=== PATIENT | female | born 1945 | race Caucasian/White ===

== ENCOUNTER 2017-11-02 13:23 | Observation (INO) ==
[2017-11-02] MEDS ORDERED: 0.9 % Sodium Chloride 1,000 ML IVC ONE (13:34)
[2017-11-02] MEDS ORDERED: Isovue-370 500 ML INFUS..BTL IV ONE ×3 (13:35→14:33)
[2017-11-02] MEDS ORDERED: Piperacillin/Tazobactam 3.375 GM in 0.9 % Sodium Chloride Mini Bag 100 ML IVPB ONE (13:37)
[2017-11-02 14:08] LABS: Basophils % 0.2 %; Eosinophils % 0.1 %; Hematocrit 28.8 % (35.3-44.9); Hemoglobin 8.8 g/dL (11.5-15.4); Immature Granulocytes % 0.9 % (0-4); Lymphocytes # 0.7 K/mcL (0.6-4.6); Lymphocytes % 6.1 %; Mean Corpuscular HGB Conc 30.6 g/dL (31.6-35.5); Mean Corpuscular Hemoglobin 28.3 pg (28.0-33.3); Mean Corpuscular Volume 92.6 fL (83.0-100.0); Mean Platelet Volume 9.1 fL (9.4-12.4); Monocytes # 0.9 K/mcL (0.0-1.3); Monocytes % 7.9 %; Neutrophils # 9.2 K/mcL (1.6-8.9); Platelet Count 309 K/mcL (140-400); Red Blood Count 3.11 M/mcL (3.82-4.97); Red Cell Distribution Width 19.2 % (11.5-14.5); Segmented Neutrophils % 84.8 %
[2017-11-02 14:11] LABS: VBG HCO3 25 mEq/L (21-27); VBG PCO2 39 mmHg (41-51); VBG PH 7.42 pH Units (7.32-7.42); VBG PO2 87 mmHg (25-50)
[2017-11-02 14:15] LABS: INR 1.2; Prothrombin Time 13.3 Seconds (9.4-12.1)
[2017-11-02 14:17] LABS: Activated Partial Thrombo Time 22.6 Seconds (26.0-36.0)
--- NOTE | 2017-11-02 14:18 | Emergency Department Note ---
Disposition Clinical Impression: Metastatic disease, Elevated troponin DVT (deep venous thrombosis) Qualifiers: DVT location: lower extremity Affected thrombotic vein of extremity: femoral Chronicity: unspecified Laterality: left Qualified Code(s): I82.412 - Acute embolism and thrombosis of left femoral vein Pulmonary embolism Qualifiers: Pulmonary embolism type: other Chronicity: acute Acute cor pulmonale presence: without acute cor pulmonale Qualified Code(s): I26.99 - Other pulmonary embolism without acute cor pulmonale Altered mental status Qualifiers: Altered mental status type: unspecified Qualified Code(s): R41.82 - Altered mental status, unspecified Disposition: Admitted As Inpatient Condition: Critical Referrals: Andrew Delarosa MD [Primary Care Provider] - Forms: ED Satisfaction Letter Altered Mental Status HPI - General Chief Complaint: ED Altered Mental Status Stated Complaint: Altered Mental Status Time Seen by Provider: 11/02/17 13:27 Source: EMS Limitations: no limitations Nursing Notes Reviewed: Yes Vital Signs Reviewed: Yes - History of Present Illness HPI Narrative: Patient presents to the emergency department from care home for evaluation of altered mental status. Symptoms started on Friday per nursing report have continued to worsen over the weekend. Patient has a history of left-sided DVT with +1 pitting edema that is now 4+ pitting edema. She has a history of lung cancer with pelvic mass. The patient has on exam a sacral decubitus ulcer that extends into the sacrum and does have some mild purulent material. The patient also has bruising to the abdomen and chest. She was noted to have some mild bruising earlier in the week per care home from Lovenox injections. His bruising is now symmetrical involves the abdomen and a square-like pattern does not go to the back and also has involvement of both bilateral breasts. Patient is unable to tell me any information as her speech is garbled. She is normally awake alert and oriented and able to speak in feed herself. Does not usually require oxygen. - Related Data Home Medications Medication Instructions Recorded Confirmed Acetaminophen [Non-Aspirin] 2 tab PO Q4H PRN 09/23/17 11/02/17 Atorvastatin [Lipitor] 40 mg PO HS 09/23/17 11/02/17 Buspirone HCl [Buspar] 10 mg PO BID 09/23/17 11/02/17 Gabapentin [Neurontin] 300 mg PO BID 09/23/17 11/02/17 HYDROcodone/Acet 10/325 mg [[place] 1 tab PO TID PRN 09/23/17 11/02/17 10-325 mg] Nitroglycerin [Nitrostat] 0.4 mg SL PRN PRN 09/23/17 11/02/17 Omeprazole [PriLOSEC] 20 mg PO HS 09/23/17 11/02/17 Aspirin Enteric Coated [Aspirin EC] 81 mg PO DAILY 09/29/17 11/02/17 Collagenase Oint [Santyl] 1 appl TP DAILY 11/02/17 11/02/17 Dronabinol [Marinol] 2.5 mg PO BIDLS 11/02/17 11/02/17 Previous Rx's Medication Instructions Recorded Enoxaparin [Lovenox] 70 mg SQ Q12HR #60 syr 10/21/17 Allergies Allergy/AdvReac Type Severity Reaction Status Date / Time No Known Allergies Allergy Verified 10/21/17 08:17 Limitations: ROS unobtainable due to patients medical condition Past Medical History - Past Medical History Medical history: Reports: cancer, GERD, hypertension Psychiatric history: Reports: anxiety, depression - Social History Smoking Status: Former smoker Smokeless Tobacco Status: No Alcohol use: Reports: none Drug use: Reports: none Physical Exam General: Patient with garbled speech and unable to answer specific questions. Head: Normocephalic Atraumatic Eyes: PERRL, EOMI ENT: Airway patent, no stridor Neck: supple Chest: Lungs clear to auscultation bilateral Cardiac: Regular rate and rhythm Abdomen: Bruising, soft, nontender, nondistended; no guarding, rebound, or tenderness to percussion Musculoskeletal: Left leg with significant pitting edema +4 to the thigh Skin: Bruising to the bilateral breasts as well as chest that is symmetric and in what appears to be a single stage. Neuro: Patient has spontaneous eye opening and garbled speech but is otherwise unable to follow specific commands or give further history - General Limitations: no limitations General appearance: alert, in no apparent distress Course - Reevaluation(s) Reevaluation #1: I have discussed the findings with the patient as well as at bedside. These findings are new and very concerning for worsening condition. She has been notified of her elevated troponin as well as bilateral PTs worsening metastatic condition. is aware of her critically ill and likely poor outcome. At this time she does follow with the cancer center here. Her lesions including her cranial lesions which shows soft tissue mass effect but no significant increased intracranial pressure mass effect will also be discussed. I have discussed with them at bedside in which she would would not want it at this time they know that she would not want compressions are intubation and she would not want neurosurgery if she developed intracranial hemorrhage. At this time after discussion with oncology has been deemed appropriate that she is able to stay at [facility]. We will admit her to the hospital service so that oncology can discuss further options which may include palliative treatment options. Family is at bedside and in agreement with treatment decisions. - Consultations Consultation #1: Received call from radiology to discuss the CT findings. Consultation #2: Discussed with oncology. Patient received Decadron 20 mg IV in the emergency department as well as continued 10 mg twice a day or 6 mg 3 times a day. They will consult on the patient and make further recommendations. Vital Signs Temperature 98.3 F 11/02/17 13:33 Pulse Rate 101 11/02/17 13:33 Respiratory Rate 20 11/02/17 13:33 Blood Pressure 121/71 11/02/17 13:33 O2 Sat by Pulse Oximetry 95 11/02/17 13:33 Temperature 98.3 F 11/02/17 13:33 Pulse Rate 83 11/02/17 17:08 Respiratory Rate 16 11/02/17 17:08 Blood Pressure 103/58 11/02/17 17:08 O2 Sat by Pulse Oximetry 97 11/02/17 17:08 Oxygen Delivery Oxygen Delivery Room Air Altered Mental Status - Medical Records Medical records reviewed: Yes I reviewed the patient's medical records. - Lab Data Lab results reviewed: Yes I reviewed the patient's lab results. Result diagrams: 11/02/17 13:54 11/02/17 13:54 Lab Results 11/02/17 11/02/17 11/02/17 Range/Units 13:54 13:54 13:54 WBC 10.8 (4.3-11.1) K/mcL RBC 3.11 L (3.82-4.97) M/mcL Hgb 8.8 L (11.5-15.4) g/dL Hct 28.8 L (35.3-44.9) % MCV 92.6 (83.0-100.0) fL MCH 28.3 (28.0-33.3) pg MCHC 30.6 L (31.6-35.5) g/dL RDW 19.2 H (11.5-14.5) % Plt Count 309 (140-400) K/mcL MPV 9.1 L (9.4-12.4) fL Immature Gran % 0.9 (0-4) % Seg Neutrophils % 84.8 % Lymphocytes % 6.1 % Monocytes % 7.9 % Eosinophils % 0.1 % Basophils % 0.2 % Neutrophils # 9.2 H (1.6-8.9) K/mcL Lymphocytes # 0.7 (0.6-4.6) K/mcL Monocytes # 0.9 (0.0-1.3) K/mcL Eosinophils # 0.0 (0.0-0.6) K/mcL Basophils # 0.0 (0.0-0.2) K/mcL PT 13.3 H (9.4-12.1) Seconds INR 1.2 APTT 22.6 L (26.0-36.0) Seconds Heparin Anti-Xa, Unfract (0.30-0.70) IU/mL VBG pH (7.32-7.42) pH Units VBG pCO2 (41-51) mmHg VBG pO2 (25-50) mmHg VBG HCO3 (21-27) mEq/L Sodium 134 L (136-145) mEq/L Potassium 4.4 (3.5-5.1) mEq/L Chloride 102 (98-107) mEq/L Carbon Dioxide 24 (23-29) mEq/L BUN 16 (8-23) mg/dL Creatinine 0.53 L (0.60-1.20) mg/dL Est GFR ( Amer) > 60 (> 60) Est GFR (Non-Af Amer) > 60 (> 60) BUN/Creatinine Ratio 30 H (6-26) Glucose 76 (70-105) mg/dL Calculated Osmolality 278 L (280-300) Lactic Acid (0.5-2.2) mmol/L Calcium 10.4 H (8.6-10.3) mg/dL Total Bilirubin 0.9 (0.3-1.0) mg/dL Direct Bilirubin 0.4 H (0.0-0.2) mg/dL Indirect Bilirubin 0.5 (0.0-1.2) mg/dL AST 25 (13-39) Units/L ALT 15 (7-52) Units/L Alkaline Phosphatase 220 H (34-104) Units/L Troponin I 0.68 H* (< 0.04) ng/mL Serum Total Protein 5.6 L (6.4-8.9) g/dL Albumin 2.3 L (3.5-5.7) g/dL Globulin 3.3 (2.4-3.5) g/dL Albumin/Globulin Ratio 0.7 L (1.1-2.2) Urine Color (Yellow) Urine Clarity (Clear) Urine pH (5.0-8.0) pH Units Ur Specific [place] (1.010-1.025) Urine Protein (Neg-Trace) mg/dL Urine Glucose (UA) (Normal) mg/dL Urine Ketones (Negative) mg/dL Urine Blood (Negative) Urine Nitrite (Negative) Urine Bilirubin (Negative) Urine Urobilinogen (Normal) mg/dL Ur Leukocyte Esterase (Negative) Urine Microscopic RBC (0-3) per hpf Urine Microscopic WBC (0-3) per hpf Ur Squamous Epith Cells (None-Few) per lpf Urine Bacteria (None-Few) per hpf Hyaline Casts (None-Few) per lpf Ur Culture Indicated? (NO) Ethyl Alcohol < 10 (Less than 10) mg/dL 11/02/17 11/02/17 11/02/17 Range/Units 13:54 14:06 15:09 WBC (4.3-11.1) K/mcL RBC (3.82-4.97) M/mcL Hgb (11.5-15.4) g/dL Hct (35.3-44.9) % MCV (83.0-100.0) fL MCH (28.0-33.3) pg MCHC (31.6-35.5) g/dL RDW (11.5-14.5) % Plt Count (140-400) K/mcL MPV (9.4-12.4) fL Immature Gran % (0-4) % Seg Neutrophils % % Lymphocytes % % Monocytes % % Eosinophils % % Basophils % % Neutrophils # (1.6-8.9) K/mcL Lymphocytes # (0.6-4.6) K/mcL Monocytes # (0.0-1.3) K/mcL Eosinophils # (0.0-0.6) K/mcL Basophils # (0.0-0.2) K/mcL PT (9.4-12.1) Seconds INR APTT (26.0-36.0) Seconds Heparin Anti-Xa, Unfract (0.30-0.70) IU/mL VBG pH 7.42 (7.32-7.42) pH Units VBG pCO2 39 L (41-51) mmHg VBG pO2 87 H (25-50) mmHg VBG HCO3 25 (21-27) mEq/L Sodium (136-145) mEq/L Potassium (3.5-5.1) mEq/L Chloride (98-107) mEq/L Carbon Dioxide (23-29) mEq/L BUN (8-23) mg/dL Creatinine (0.60-1.20) mg/dL Est GFR ( Amer) (> 60) Est GFR (Non-Af Amer) (> 60) BUN/Creatinine Ratio (6-26) Glucose (70-105) mg/dL Calculated Osmolality (280-300) Lactic Acid 1.3 (0.5-2.2) mmol/L Calcium (8.6-10.3) mg/dL Total Bilirubin (0.3-1.0) mg/dL Direct Bilirubin (0.0-0.2) mg/dL Indirect Bilirubin (0.0-1.2) mg/dL AST (13-39) Units/L ALT (7-52) Units/L Alkaline Phosphatase (34-104) Units/L Troponin I (< 0.04) ng/mL Serum Total Protein (6.4-8.9) g/dL Albumin (3.5-5.7) g/dL Globulin (2.4-3.5) g/dL Albumin/Globulin Ratio (1.1-2.2) Urine Color Yellow (Yellow) Urine Clarity Clear (Clear) Urine pH 6.5 (5.0-8.0) pH Units Ur Specific [place] > 1.030 H (1.010-1.025) Urine Protein Negative (Neg-Trace) mg/dL Urine Glucose (UA) Normal (Normal) mg/dL Urine Ketones Negative (Negative) mg/dL Urine Blood Negative (Negative) Urine Nitrite Negative (Negative) Urine Bilirubin Small H (Negative) Urine Urobilinogen 2.0 H (Normal) mg/dL Ur Leukocyte Esterase Small H (Negative) Urine Microscopic RBC 0-3 (0-3) per hpf Urine Microscopic WBC 3-5 H (0-3) per hpf Ur Squamous Epith Cells Many H (None-Few) per lpf Urine Bacteria None Seen (None-Few) per hpf Hyaline Casts None Seen (None-Few) per lpf Ur Culture Indicated? NO. A (NO) Ethyl Alcohol (Less than 10) mg/dL 11/02/17 Range/Units 17:35 WBC (4.3-11.1) K/mcL RBC (3.82-4.97) M/mcL Hgb (11.5-15.4) g/dL Hct (35.3-44.9) % MCV (83.0-100.0) fL MCH (28.0-33.3) pg MCHC (31.6-35.5) g/dL RDW (11.5-14.5) % Plt Count (140-400) K/mcL MPV (9.4-12.4) fL Immature Gran % (0-4) % Seg Neutrophils % % Lymphocytes % % Monocytes % % Eosinophils % % Basophils % % Neutrophils # (1.6-8.9) K/mcL Lymphocytes # (0.6-4.6) K/mcL Monocytes # (0.0-1.3) K/mcL Eosinophils # (0.0-0.6) K/mcL Basophils # (0.0-0.2) K/mcL PT (9.4-12.1) Seconds INR APTT (26.0-36.0) Seconds Heparin Anti-Xa, Unfract 0.05 L (0.30-0.70) IU/mL VBG pH (7.32-7.42) pH Units VBG pCO2 (41-51) mmHg VBG pO2 (25-50) mmHg VBG HCO3 (21-27) mEq/L Sodium (136-145) mEq/L Potassium (3.5-5.1) mEq/L Chloride (98-107) mEq/L Carbon Dioxide (23-29) mEq/L BUN (8-23) mg/dL Creatinine (0.60-1.20) mg/dL Est GFR ( Amer) (> 60) Est GFR (Non-Af Amer) (> 60) BUN/Creatinine Ratio (6-26) Glucose (70-105) mg/dL Calculated Osmolality (280-300) Lactic Acid (0.5-2.2) mmol/L Calcium (8.6-10.3) mg/dL Total Bilirubin (0.3-1.0) mg/dL Direct Bilirubin (0.0-0.2) mg/dL Indirect Bilirubin (0.0-1.2) mg/dL AST (13-39) Units/L ALT (7-52) Units/L Alkaline Phosphatase (34-104) Units/L Troponin I (< 0.04) ng/mL Serum Total Protein (6.4-8.9) g/dL Albumin (3.5-5.7) g/dL Globulin (2.4-3.5) g/dL Albumin/Globulin Ratio (1.1-2.2) Urine Color (Yellow) Urine Clarity (Clear) Urine pH (5.0-8.0) pH Units Ur Specific [place] [address] (1.010-1.025) Urine Protein (Neg-Trace) mg/dL Urine Glucose (UA) (Normal) mg/dL Urine Ketones (Negative) mg/dL Urine Blood (Negative) Urine Nitrite (Negative) Urine Bilirubin (Negative) Urine Urobilinogen (Normal) mg/dL Ur Leukocyte Esterase (Negative) Urine Microscopic RBC (0-3) per hpf Urine Microscopic WBC (0-3) per hpf Ur Squamous Epith Cells (None-Few) per lpf Urine Bacteria (None-Few) per hpf Hyaline Casts (None-Few) per lpf Ur Culture Indicated? (NO) Ethyl Alcohol (Less than 10) mg/dL - Radiology Data Radiology results reviewed: Yes I reviewed the patient's radiology results. - EKG Data EKG attestation: Yes I reviewed and interpreted this EKG. EKG results narrative: EKG sinus tachycardia with a rate of 100. MT 137. QRS 92. QTC 430. Patient has no significant ST elevations. Patient has T-wave inversions throughout the anterior leads. No previous EKG within the system. TPA Checklist - LKW: 3-4.5 hrs Add. Warnings/Precautions Patient/family understanding: The patient/family members have been counseled and understood the risk, benefit , and alternatives of treatment.
[2017-11-02 14:28] LABS: Alanine Aminotransferase 15 Units/L (7-52); Albumin 2.3 g/dL (3.5-5.7); Albumin/Globulin Ratio 0.7 (1.1-2.2); Alkaline Phosphatase 220 Units/L (34-104); Aspartate Amino Transferase 25 Units/L (13-39); BUN/Creatinine Ratio 30 (6-26); Bilirubin,Direct 0.4 mg/dL (0.0-0.2); Bilirubin,Indirect 0.5 mg/dL (0.0-1.2); Bilirubin,Total 0.9 mg/dL (0.3-1.0); Blood Urea Nitrogen 16 mg/dL (8-23); Calcium 10.4 mg/dL (8.6-10.3); Carbon Dioxide 24 mEq/L (23-29); Chloride 102 mEq/L (98-107); Ethanol < 10 mg/dL (Less than 10); Globulin 3.3 g/dL (2.4-3.5); Glucose 76 mg/dL (70-105); Osmolality,Calculated 278 (280-300); Potassium 4.4 mEq/L (3.5-5.1); Sodium 134 mEq/L (136-145); Total Protein 5.6 g/dL (6.4-8.9); eGFR For Non-African Americans > 60 (> 60)
[2017-11-02 14:32] LABS: Troponin I 0.68 ng/mL (< 0.04)
[2017-11-02 15:18] LABS: Bilirubin,Urine Small (Negative); Blood,Urine Negative (Negative); Clarity,Urine Clear (Clear); Color,Urine Yellow (Yellow); Glucose,Urine (UA) Normal (Normal); Ketones,Urine Negative (Negative); Leukocyte Esterase,Urine Small (Negative); Nitrite,Urine Negative (Negative); PH,Urine 6.5 pH Units (5.0-8.0); Protein,Urine Negative (Neg-Trace); Specific Gravity,Urine > 1.030 (1.010-1.025)
[2017-11-02 15:20] LABS: Bacteria,Urine None Seen per hpf (None-Few); Hyaline Casts,Urine None Seen per lpf (None-Few); RBC,Urine 0-3 per hpf (0-3); Squamous Epithelial Cell,Urine Many per lpf (None-Few)
[2017-11-02] MEDS ORDERED: Dexamethasone 4 MG/ML VIAL IVP ONE (17:17)
[2017-11-02] MEDS ORDERED: *HR* Heparin 5,000 UNIT/ML VIAL IVP ONE (17:18)
[2017-11-02] MEDS ORDERED: *HR* Heparin 5,000 UNIT/ML VIAL IVP PRN ×2 (17:18)
[2017-11-02] MEDS ORDERED: 0.9 % Sodium Chloride 500 ML IVC ONE (18:56)
[2017-11-02] MEDS: Heparin 25,000 UNIT/500 ML D5W 25,000 UNIT/500 ML BAG IVC SCH (19:58)
[2017-11-02] MEDS ORDERED: Naloxone 0.4 MG/ML INJ IVP PRN (21:43)
--- NOTE | 2017-11-02 22:44 | Internal Med History&Physical ---
Date of Encounter: 11/03/17 Time of Encounter: 20:50 Internal Medicine - H&P: HPI Chief complaint: Bilateral pulmonary embolisms Admitted From: Emergency Dept Plans for Post Hospital Care: Home History of present illness: Ms. Canseco is a 71 year old female Patient presented to the ER with altered mental status. She resides in a senior care and over the last few days her symptoms have worsened. She was being treated for left sided DVT, as well as lung and pelvic cancer. She also has a sacral decubitus ulcer that extends into the sacrum. Her family is at bedside and provides additional details. They indicate that she has not been eating like normal, has been undergoing cancer treatments at the cancer center and her altered mental status has been slowly progressing for at least the last few weeks. They brought her to the ER for further evaluation. In the ER she was found to have elevated troponin of 0.68, and anemia with hemoglobin of 8.8. UA was positive for small leukocyte esterase. Chest CTA showed bilateral pulmonary embolic disease, no evidence of right heart strain. Imaging also revealed extensive metastasis in the hilar region, liver bilateral adrenal glands and pelvis. a head CT showed possible metastasis with multiple lytic lesions with slight mass effect upon the dura. There was also questionable focus of edema in the posterior left parietal lobe in the subcortical white matter. Upon my assessment, patient does answer some yes and no questions, and follows commands. Family is at bedside. She denied pain, did not know where she was or what day it was. She did know her name. Past Med Surg Social Fam HX - Past Medical History Medical history: cancer, GERD, hypertension Additional medical history: HERNIA Psychiatric history: anxiety, depression - Social History Smoking Status: Former smoker Smokeless Tobacco Status: No Alcohol use: none Drug use: none - Family History Mother History Unknown: Yes Internal Medicine - H&P: Meds Acetaminophen [Non-Aspirin] 2 tab PO Q4H PRN 09/23/17 [History] Atorvastatin [Lipitor] 40 mg PO HS 09/23/17 [History] Buspirone HCl [Buspar] 10 mg PO BID 09/23/17 [History] Gabapentin [Neurontin] 300 mg PO BID 09/23/17 [History] HYDROcodone/Acet 10/325 mg [[place] 10-325 mg] 1 tab PO TID PRN 09/23/17 [History] Nitroglycerin [Nitrostat] 0.4 mg SL PRN PRN 09/23/17 [History] Omeprazole [PriLOSEC] 20 mg PO HS 09/23/17 [History] Aspirin Enteric Coated [Aspirin EC] 81 mg PO DAILY 09/29/17 [History] Enoxaparin [Lovenox] 70 mg SQ Q12HR #60 syr 10/21/17 [Rx] Collagenase Oint [Santyl] 1 appl TP DAILY 11/02/17 [History] Dronabinol [Marinol] 2.5 mg PO BIDLS 11/02/17 [History] 3 Allergy/AdvReac Type Severity Reaction Status Date / Time No Known Allergies Allergy Verified 10/21/17 08:17 All Systems PM: A 10-system review of systems was performed and is negative for pertinent findings except as documented above in the HPI. - Constitutional Vitals: Temp Pulse Resp BP Pulse Ox 97.7 F 81 17 119/72 96 11/02/17 22:08 11/02/17 22:08 11/02/17 22:08 11/02/17 22:08 11/02/17 22:08 General appearance: Present: A&O X 1, pleasant, no acute distress, answers questions appropriately Exam: Patient answered questions appropriately, but was not oriented to place or time. She did respond to her name, and followed commands well. - Head Head exam: Present: normal inspection - Eye Eye exam: Present: EOMI, normal appearance - Respiratory Respiratory exam: Present: CTAB. Absent: chest wall tenderness, decreased breath sounds, wheezes - Cardiovascular Cardiovascular exam: Present: RRR. Absent: diastolic murmur, systolic murmur - GI/Abdominal GI/Abdominal exam: Present: normal bowel sounds, soft, tenderness Additional comments: Right-sided tenderness with palpation - Extremities Exam Extremities exam: Present: pedal edema, warm. Absent: calf tenderness, tenderness Additional comments: 4+ pitting edema in the left lower extremity, warm to the touch but no erythema. Pulses not palpable. Patient could move both feet, and wiggle toes. Sensation seems to be intact bilaterally. Patient denied pain in the lower extremities - Neurological Exam Neurological exam: Present: no focal deficits, strengths equal and symetr throughout. Absent: motor sensory deficit, facial droop, speech deficit Internal Med - H&P Results - Labs CBC & Chem 7: 11/03/17 05:13 11/03/17 05:13 - Assessment and plan (1) Acute encephalopathy Current Visit: Yes Status: Acute Assessment and plan: Could be secondary to metastatic disease. Worsening over the last few weeks at least. UA only positive for small leukocyte esterase. Sacral decubitus ulcers present, could be infected which may contribute to her condition. Oncology consult in the morning. Continue antibiotics as below Continue to monitor. (2) Pulmonary embolism Current Visit: Yes Status: Acute Assessment and plan: As evidenced by patient's CT angiogram. Patient was being treated for DVT with lovenox starting a few weeks ago. Patient highly coagulable due to her metastatic disease. Heparin drip was started in the emergency room. Continue heparin drip We will need to address discharge anticoagulation after input from oncology Qualifiers: Pulmonary embolism type: other Chronicity: acute Acute cor pulmonale presence: without acute cor pulmonale Qualified Code(s): I26.99 - Other pulmonary embolism without acute cor pulmonale (3) Metastatic disease Current Visit: Yes Status: Acute Assessment and plan: Multiple lesions found. Patient recently treated at the cancer center, for metastatic adenocarcinoma of the lung. Intent of treatment is palliative, last cycle was 10/31/17. Continue management as per oncology team. (4) Elevated troponin Current Visit: Yes Status: Acute Assessment and plan: Unclear etiology, could be related to pulmonary embolisms. Patient denied chest pain, EKG showed no ST-T elevations. Continue to trend troponins Heparin drip already started for pulmonary embolisms Consider cardiology consult (5) Sacral decubitus ulcer Current Visit: Yes Status: Acute Assessment and plan: Chronic, present on admission. Patient receiving wound care outpatient. Possible infection, blood cultures drawn. Zosyn and vancomycin started in the emergency room. Continue antibiotics Follow-up blood cultures Continue wound care Qualifiers: Pressure injury stage: unspecified pressure injury stage Qualified Code(s) : L89.159 - Pressure ulcer of sacral region, unspecified stage (6) Pitting edema Current Visit: Yes Status: Acute Assessment and plan: Left side worse than right side. Likely secondary to DVT present. Continue treatment with heparin as above - Time Spent With Patient Total time spent is greater than 50% in coordination of care (as documented) at patient's floor/unit and/or counseling patient: Greater than 35 minutes
[2017-11-02] MEDS: Piperacillin/Tazobactam 3.375 GM in 0.9 % Sodium Chloride Mini Bag 100 ML IVPB SCH (23:55)
[2017-11-03 05:49] LABS: Hemoglobin 7.9 g/dL (11.5-15.4); Mean Corpuscular HGB Conc 30.4 g/dL (31.6-35.5); Mean Corpuscular Hemoglobin 28.1 pg (28.0-33.3); Mean Corpuscular Volume 92.5 fL (83.0-100.0); Mean Platelet Volume 9.1 fL (9.4-12.4); Platelet Count 255 K/mcL (140-400); Red Blood Count 2.81 M/mcL (3.82-4.97); Red Cell Distribution Width 18.8 % (11.5-14.5)
[2017-11-03 06:09] LABS: BUN/Creatinine Ratio 44 (6-26); Blood Urea Nitrogen 15 mg/dL (8-23); Calcium 9.6 mg/dL (8.6-10.3); Carbon Dioxide 21 mEq/L (23-29); Chloride 104 mEq/L (98-107); Glucose 110 mg/dL (70-105); Osmolality,Calculated 275 (280-300); Potassium 4.1 mEq/L (3.5-5.1); Sodium 132 mEq/L (136-145); eGFR For Non-African Americans > 60 (> 60)
[2017-11-03] MEDS ORDERED: Acetaminophen 325 MG TABLET PO PRN (08:00)
[2017-11-03] MEDS ORDERED: *HR* HYDROcodone/Acet 10/325 mg TABLET PO PRN ×2 (08:00→11:26)
[2017-11-03] MEDS: Piperacillin/Tazobactam 3.375 GM in 0.9 % Sodium Chloride Mini Bag 100 ML IVPB SCH (08:47)
[2017-11-03] MEDS: Aspirin Enteric Coated 81 MG Tablet PO SCH (08:48)
[2017-11-03] MEDS: Dexamethasone 10 MG/ML VIAL IVP SCH ×2 (08:48→22:19)
[2017-11-03] MEDS ORDERED: *HR* FentaNYL PATCH 25 MCG PATCH TD SCH (11:00)
--- NOTE | 2017-11-03 11:02 | Palliative - Consult Note ---
Date of Encounter: 11/04/17 Time of Encounter: 11:00 - Assessment and Plan (1) Cancer associated pain Current Visit: Yes Status: Chronic Assessment and plan: Patient appears very uncomfortable, although unable to verbally describe or rate her pain. states she was previously on Fentanyl patch but was not prescribed at [facility]. states she has also had liquid Morphine in the past. [place] does not appear to be helping much with her pain today. With progression of disease and pain management, she would likely benefit from restart of Fentanyl patch. Will restart at 25mcg/hr ( states this was previous dose) and monitor. Keep norco for moderate pain, but add Roxanol for severe pain. Monitor and titrate if needed. (2) Constipation Current Visit: Yes Status: Acute Assessment and plan: Begin bowel regimen with increased opioids. Senokot BID - and Dulcolax PRN. Qualifiers: Constipation type: unspecified constipation type Qualified Code(s): K59.00 - Constipation, unspecified (3) Goals of care, counseling/discussion Current Visit: Yes Status: Acute Assessment and plan: Dr. Diop, Kristine Dumont, CORPORATE [employer]EARCH ANALYST and myself met with pt , son, and son from [place] was on speaker phone. Dr. Diop updated them on disease progression and lack of good treatment plan at this point with her functional status. Family made the decision to transition to comfort care, and code status changed to DNRCC. Discussed plan for comfort care - she is still very uncomfortable and requiring change in opioids today. [facility] Contacted by phone and they will have someone here on site tomorrow at 1100 to evaluate patient and see if she meets criteria for transfer to their facility. Will f/u in am. (4) Advance care planning Current Visit: Yes Status: Acute Assessment and plan: Patient has previously completed DPOA and living will. Prior to this hospitalization, she was receiving care at [facility]. (5) Pulmonary embolism Current Visit: Yes Status: Acute Assessment and plan: Continues on Heparin drip Qualifiers: Pulmonary embolism type: other Chronicity: acute Acute cor pulmonale presence: without acute cor pulmonale Qualified Code(s): I26.99 - Other pulmonary embolism without acute cor pulmonale (6) Metastatic disease Current Visit: Yes Status: Acute Assessment and plan: Appears to have progression of disease. Oncology consult pending (7) Altered mental status Current Visit: Yes Status: Acute Qualifiers: Altered mental status type: unspecified Qualified Code(s): R41.82 - Altered mental status, unspecified (8) Sacral decubitus ulcer Current Visit: Yes Status: Chronic Assessment and plan: Continues with wet to dry dressings Qualifiers: Pressure injury stage: unspecified pressure injury stage Qualified Code(s) : L89.159 - Pressure ulcer of sacral region, unspecified stage Palliative-CN HPI - Data of Consult Requesting Physician: Chaya Beltran MD Primary Care Provider: Andrew Delarosa MD - Consult Narrative History of present illness: Ms. Canseco is a 71 year old female Who presented to the ER from [facility] with increased alteration in mental status. She has history of metastatic cancer, and under care and treatment of Dr. Campbell at [facility]. She has recently been treated for left DVT. She is poor historian - family at bedside is providing information. They transferred her care to [facility] in August. She has been started on Keytruda and has had radiation treatments per Dr. Amish Diop. states that the last couple of weeks , she has been more confused and not eating. She has also developed a stage IV decub as well. They reside in [facility], but she has been at [facility] for care and proximity to cancer bagdad. Patient has 3 sons. Other medical conditions include HTN, GERD, anxiety, and depression Imaging completed in the ER demonstrated Chest CTA showed bilateral pulmonary embolic disease, extensive metastasis in the hilar region, liver bilateral adrenal glands and pelvis. a head CT showed possible metastasis with multiple lytic lesions with slight mass effect upon the dura. There was also questionable focus of edema in the posterior left parietal lobe in the subcortical white matter. Upon my assessment, patient does answer some yes and no questions, and follows simple commands. Oriented to name only. She denies pain, however, moans out at intervals and appears uncomfortable during assessment. states she was previously on a Fentanyl patch, however, this did not get continued at the [facility]. CC: Chaya Beltran MD Past Med Surg Social Fam HX - Past Medical History Medical history: cancer, GERD, hypertension Additional medical history: HERNIA Psychiatric history: anxiety, depression - Social History Smoking Status: Former smoker Smokeless Tobacco Status: No Alcohol use: none Drug use: none - Family History Mother History Unknown: Yes Medications and Allergies Acetaminophen [Non-Aspirin] 2 tab PO Q4H PRN 09/23/17 [History] Atorvastatin [Lipitor] 40 mg PO HS 09/23/17 [History] Buspirone HCl [Buspar] 10 mg PO BID 09/23/17 [History] Gabapentin [Neurontin] 300 mg PO BID 09/23/17 [History] HYDROcodone/Acet 10/325 mg [[place] 10-325 mg] 1 tab PO TID PRN 09/23/17 [History] Nitroglycerin [Nitrostat] 0.4 mg SL PRN PRN 09/23/17 [History] Omeprazole [PriLOSEC] 20 mg PO HS 09/23/17 [History] Aspirin Enteric Coated [Aspirin EC] 81 mg PO DAILY 09/29/17 [History] Enoxaparin [Lovenox] 70 mg SQ Q12HR #60 syr 10/21/17 [Rx] Collagenase Oint [Santyl] 1 appl TP DAILY 11/02/17 [History] Dronabinol [Marinol] 2.5 mg PO BIDLS 11/02/17 [History] 3 Allergy/AdvReac Type Severity Reaction Status Date / Time No Known Allergies Allergy Verified 10/21/17 08:17 ROS unobtainable: due to mental status Palliative Care-Exam - Constitutional Vitals: Temp Pulse Resp BP Pulse Ox 97.6 F 75 16 108/64 97 11/03/17 10:56 11/03/17 10:56 11/03/17 10:56 11/03/17 10:56 11/03/17 10:56 General appearance: Present: cooperative - Head Head Exam: Present: normocephalic - Respiratory Additional comments: Breath sounds diminished bilateral lower lobes, but shallow inspiratory effort - Cardiovascular Cardiovascular exam: Present: +S1, +S2 - GI/Abdominal Exam GI/Abdominal exam: Present: soft, tenderness - Extremities Exam Additional comments: 1+ edema right lower extremity, 3+ to left lower extremity - Neurological Exam Neurological exam: Present: alert Additional comments: Oriented to name only. Answers few questions appropriately. Follows very simple commands. - Skin Skin exam: Present: dry, pallor, warm Internal Medicine - CN: Reslt - Labs CBC & Chem 7: 11/03/17 05:13 11/03/17 05:13 Labs: Short CBC 11/03/17 Range/Units 05:13 WBC 6.9 (4.3-11.1) K/mcL Hgb 7.9 L (11.5-15.4) g/dL Hct 26.0 L (35.3-44.9) % Plt Count 255 (140-400) K/mcL BMP 11/03/17 05:13 Sodium 132 L Potassium 4.1 Chloride 104 Carbon Dioxide 21 L BUN 15 Creatinine 0.34 L Glucose 110 H Calcium 9.6 Cardiac Enzymes 11/02/17 11/03/17 Range/Units 22:15 05:13 Troponin I 0.89 H* 0.69 H* (< 0.04) ng/mL - ABG Interpretation ABG results: PT/INR, D-dimer PT 13.3 Seconds (9.4-12.1) H 11/02/17 13:54 Consult Discharge Plan - Plan Referrals: Andrew Delarosa MD [Primary Care Provider] - Palliative Quality Palliative Quality: Screen for Code Status: Yes, Screen for Goals of Care: Yes, Screen for Pain: Yes, If Pain Regimen Started, Initiate Bowel Regimen: Yes, Screen for Nausea/Vomitting: Yes Code Status: 11/02/17 21:43 Resuscitation Status: Active [RES] Routine Comment: Family agreed to full code for now Resuscitation Status: Full Code
[2017-11-03] MEDS ORDERED: Bisacodyl 10 MG RECTAL SUPPOSITORY RC PRN (11:51)
--- NOTE | 2017-11-03 13:05 | Internal Med Progress Note ---
Hospitalist Progress Note - Encounter Date of Encounter: 11/03/17 Time of Encounter: 08:45 - Subjective Interval History: Patient is awake but cannot answer appropriately due to altered mental status, cannot provide history, which is obtained from her and son at bedside. Reports generalized pain, winces on palpation of abdomen and both legs. Family reports gradual deterioration in functional status and mental status over the last few weeks. Poor appetite. Mostly bedbound due to generalized weakness, receiving palliative chemotherapy for metastatic lung cancer. - Exam Vitals: Temp Pulse Resp BP Pulse Ox 97.6 F 75 16 108/64 97 11/03/17 10:56 11/03/17 10:56 11/03/17 10:56 11/03/17 10:56 11/03/17 10:56 Exam: General: Elderly female lying in bed, occasionally moaning and mumbling Skin: Warm and supple Chest: Normal thoracic expansion. coarse breath sounds at lateral and midaxillary area. not cooperative with full exam; Heart: Normal S1 & S2; rhythmic. No rubs or murmurs. Abdomen: Non-distended, soft, diffuse tenderness to light palpation; Extremities: restricted ROM in LE joints due to pain and weakness; left LE with diffuse edema and lymphedema; right LE with 1+ pitting pedal edema; B/L LE tenderness+ Neurological: altered, not oriented to person, place or time; mumbles occasionally; does not follow commands; generalized decrease in motor power; - Assessment and Plan (1) Acute encephalopathy Current Visit: Yes Status: Acute Assessment and Plan: Likely metabolic due to underlying malignancy and brain metastasis noted on CT head. Altered mental status has been gradually progressive over the last few days to weeks. Continue supportive care and fall precautions. Treatment of underlying conditions. CT head shows soft tissue mass associated with a right parietal bone lesion along with possible left parietal lobe metastatic lesion. Multiple lytic skull lesions, evidence of metastatic disease. (2) Pulmonary embolism Current Visit: Yes Status: Acute Assessment and Plan: CT angiogram of chest shows bilateral pulmonary embolism, no right heart strain. Continue anticoagulation with IV heparin drip at this time. Patient is noted to be on full dose subcutaneous Lovenox at the skilled nursing due to recently diagnosed DVT, which is currently held. Continue supportive care and supplemental oxygen as needed. Consulted oncology, will await recommendations for anticoagulation. (3) DVT (deep venous thrombosis) Current Visit: Yes Status: Chronic Assessment and Plan: Venous Doppler of bilateral lower extremities shows chronic deep venous thrombosis in left lower extremity, continue anticoagulation with IV heparin drip. (4) Adenocarcinoma of lung, stage 4 Current Visit: Yes Status: Chronic Assessment and Plan: Patient is noted to have probably synchronous cancers in right lung and pelvic bone. Reviewed imaging studies, which show significant cancer progression with current metastasis to brain, liver, adrenal glands, etc; Reviewed recent oncology office note-patient has received palliative radiation to left pubic bone mass, currently on immunotherapy with Pembrolizumab, with palliative intent. Plan of care and patient's guarded prognosis discussed in detail with her and son at bedside. They understand the gravity of her current condition and futility of medical treatment. Awaiting oncology recommendations. They do agree with keeping the patient comfortable. We will consult palliative care. (5) Essential hypertension Current Visit: Yes Status: Chronic Assessment and Plan: Blood pressure noted to be low normal. Not on antihypertensives, continue to monitor blood pressure closely. (6) Advance care planning Current Visit: Yes Status: Acute Assessment and Plan: As mentioned above. Palliative care consulted. (7) Cancer associated pain Current Visit: Yes Status: Chronic Assessment and Plan: Continue when necessary hydrocodone for now; awaiting palliative care recommendations; (8) Elevated troponin Current Visit: Yes Status: Acute Assessment and Plan: Serum troponin at around 0.6, flat and adynamic. Likely demand ischemia due to acute pulmonary embolism. Continue current management and supportive care. Guarded prognosis. (9) Sacral decubitus ulcer Current Visit: Yes Status: Chronic Assessment and Plan: Patient has sacral decubitus ulcer, present on admission. I doubt that she has infected decubitus ulcer. She has been started on IV vancomycin and Zosyn in the emergency room, will discontinue antibiotics. Wound care consult. DVT Prophylaxis: IV Heparin - Time Spent with Patient Total time spent is greater than 50% in coordination of care (as documented) at patient's floor/unit and/or counseling patient: Plan of Care Discussed with: family Internal Medicine: Result - Labs CBC & Chem 7: 11/03/17 05:13 11/03/17 05:13 Labs: Short CBC 11/03/17 Range/Units 05:13 WBC 6.9 (4.3-11.1) K/mcL Hgb 7.9 L (11.5-15.4) g/dL Hct 26.0 L (35.3-44.9) % Plt Count 255 (140-400) K/mcL BMP 11/03/17 05:13 Sodium 132 L Potassium 4.1 Chloride 104 Carbon Dioxide 21 L BUN 15 Creatinine 0.34 L Glucose 110 H Calcium 9.6 Cardiac Enzymes 11/02/17 11/03/17 Range/Units 22:15 05:13 Troponin I 0.89 H* 0.69 H* (< 0.04) ng/mL - ABG Interpretation ABG results: PT/INR, D-dimer PT 13.3 Seconds (9.4-12.1) H 11/02/17 13:54 Consult Discharge Plan - Plan Referrals: Andrew Delarosa MD [Primary Care Provider] - (2) Pulmonary embolism Qualifiers: Pulmonary embolism type: other Chronicity: acute Acute cor pulmonale presence: without acute cor pulmonale Qualified Code(s): I26.99 - Other pulmonary embolism without acute cor pulmonale (3) DVT (deep venous thrombosis) Qualifiers: DVT location: lower extremity Affected thrombotic vein of extremity: femoral Chronicity: chronic Laterality: left Qualified Code(s): I82.512 - Chronic embolism and thrombosis of left femoral vein (4) Adenocarcinoma of lung, stage 4 Qualifiers: Laterality: unspecified laterality Qualified Code(s): C34.90 - Malignant neoplasm of unspecified part of unspecified bronchus or lung (9) Sacral decubitus ulcer Qualifiers: Pressure injury stage: unspecified pressure injury stage Qualified Code(s): L89.159 - Pressure ulcer of sacral region, unspecified stage
--- NOTE | 2017-11-03 13:19 | Oncology Inp Consult Note ---
<Kristine Dumont L - Last Filed: 11/03/17 14:37> Date of Encounter: 11/03/17 Time of Encounter: 12:30 Assessment and Plan (1) Pulmonary embolism Status: Acute Assessment and plan: CT angiogram of chest shows bilateral pulmonary embolism, no right heart strain. Currently treating with IV heparin drip at this time. Continue other supportive measures Qualifiers: Pulmonary embolism type: other Chronicity: acute Acute cor pulmonale presence: without acute cor pulmonale Qualified Code(s): I26.99 - Other pulmonary embolism without acute cor pulmonale (2) Altered mental status Status: Acute Assessment and plan: Etiology of unclear, secondary to metabolic disturbance versus malignancy versus other Progressively worsening over past 2 weeks per family She does have evidence of slight mass effect from right parietal lesion and an area of questionable focus of edema in the posterior left parietal lobe which may be contributing to her alteration in mental status. Continue decadron Qualifiers: Altered mental status type: unspecified Qualified Code(s): R41.82 - Altered mental status, unspecified (3) Cancer associated pain Status: Chronic Assessment and plan: Appreciate continued recommendations per palliative team, re-started fentanyl patch with vicodin and roxanol for severe breakthrough pain PRN. She has a history of being sensitive to opioid medications in past, monitor closely (4) Adenocarcinoma of lung, stage 4 Status: Chronic Assessment and plan: S/P palliative radiotherapy to large painful destructive left pubic bone lesion with Dr. Diop at the [facility]. She began palliative intent systemic therapt with pembroluzimab Cycle 1 on 09/30/2017 and Cycle 2 on 2017. Met with patient and family with Dr. Diop, Radiation Oncologist, and Ladonna Lang, Palliative Care ORGANISATION AND METHODS ANALYST, at bedside. She has radiographic evidence of overall disease progression as noted on radiographic imaging on admission. She has had only two cycles of pembroluzimab and generally a longer period of time is needed to determine response to treatment. But given the degree of progression and her overall acute decline in functional status, Dr. Diop discussed other options in regards to hospice care which would assist to provide best support to patient/family given her overall clinical picture. The palliative care/hospice philosophy, risk versus benefit of other treatment options along with goals of care were discussed. Following discussion, family at bedside decided to have patient transition to hospice care. Code status has been changed to DNR-CC. Appreciate continued assistance per palliative care team in continued discussion regarding logistics of hospice services. Please do not hesitate to call for any further questions or concerns the patient /family may have. Please refer to Dr. iDop's attestation below for additional details. Qualifiers: Laterality: unspecified laterality Qualified Code(s): C34.90 - Malignant neoplasm of unspecified part of unspecified bronchus or lung - Data of Consult Patient: known to practice within the last 3 years Consult date: 11/03/17 Requesting Physician: Chaya Beltran MD Primary Care Provider: Andrew Delarosa MD - Consult Narrative Reason for consult: Adenocarcinoma of the lung History of present illness: Ms. Canseco is a 71 year old female diagnosed with stage IV metastatic adenocarcinoma of the lung. She initially presented in August 2017 with pain with ambulation. She undergone left hip replacement in January 2017. She did well postoperatively however in spring 2017 began to have difficulty with pain. Ultimately she would undergo CT of the abdomen and pelvis demonstrating a 10 cm destructive mass in the left pubic bone. Bone scan demonstrated additional area of involvement in the right skull. CTA of the chest on 08/18/2017 demonstrated a 5.2 cm right perihilar mass. She underwent bronchoscopy with endobronchial ultrasound on 08/19/2017 with FNA samples from right paratracheal lymph node, subcarinal lymph node, and right hilar mass consistent with adenocarcinoma. PET/CT was performed on 09/04/2017. She did have an MRI of the brain demonstrating a right parietal bone metastasis with no evidence of intracranial disease or mass effect, she has remained asymptomatic in previous encounters. She initially started palliative radiotherapy at [facility] with 1200 cGy at 300 cGy per fraction to left pubic bone mass, this was discontinued prior to completion. She then completed 1800 cGy in 6 fractions of 300 cGy each (completed prior course at [facility]), total 3000 cGy in 10 fractions to the large painful destructive left pubic bone lesion with Dr. Diop at the [facility]. She then began palliative intent pembroluzimab Cycle 1 on 09/30/2017 and Cycle 2 on 10/31/2017. She most recently presented to the ER from [facility] with increased alteration in mental status on 11/02/2017. Her family at bedside state that she has significantly declined over the past few weeks, been increasingly confused and not eating. She has developed a stage IV sacral decubitis ulcer secondary to her decrease in performance status. Ms. Canseco is alert and able to answer some yes/no questions at times. She has had imaging of her head, chest, abdomen and pelvis with evidence of radiographic progression. CTA of the chest and CT abdomen/pelvis with IV contrast has noted bilateral pulmonary embolic disease, enlarging right hilar mass with obstruction of the bronchus intermedius, increased size of hepatic lesions, suspected bilateral adrenal metastases which have increased from prior exam and large pelvic mass with involvement of the left pubic rami and acetabulum. CT of the head has noted questionable focus of edema in the posterior left parietal lobe in the subcortical white matter with potential unseen metastatic lesion as well as multiple lytic skull lesions with soft tissue mass to the right parietal lesion the extends through the skull with evidence of slight mass effect on the dura. Past Med Surg Social Fam HX - Past Medical History Medical history: cancer, GERD, hypertension Additional medical history: HERNIA Psychiatric history: anxiety, depression - Social History Smoking Status: Former smoker Smokeless Tobacco Status: No Alcohol use: none Drug use: none - Family History Mother History Unknown: Yes Medications and Allergies Acetaminophen [Non-Aspirin] 2 tab PO Q4H PRN 09/23/17 [History] Atorvastatin [Lipitor] 40 mg PO HS 09/23/17 [History] Buspirone HCl [Buspar] 10 mg PO BID 09/23/17 [History] Gabapentin [Neurontin] 300 mg PO BID 09/23/17 [History] HYDROcodone/Acet 10/325 mg [[place] 10-325 mg] 1 tab PO TID PRN 09/23/17 [History] Nitroglycerin [Nitrostat] 0.4 mg SL PRN PRN 09/23/17 [History] Omeprazole [PriLOSEC] 20 mg PO HS 09/23/17 [History] Aspirin Enteric Coated [Aspirin EC] 81 mg PO DAILY 09/29/17 [History] Enoxaparin [Lovenox] 70 mg SQ Q12HR #60 syr 10/21/17 [Rx] Collagenase Oint [Santyl] 1 appl TP DAILY 11/02/17 [History] Dronabinol [Marinol] 2.5 mg PO BIDLS 11/02/17 [History] 3 Allergy/AdvReac Type Severity Reaction Status Date / Time No Known Allergies Allergy Verified 10/21/17 08:17 ROS unobtainable: due to mental status Oncology - Exam - Constitutional Vitals: Temp Pulse Resp BP Pulse Ox 97.6 F 75 16 108/64 97 11/03/17 10:56 11/03/17 10:56 11/03/17 10:56 11/03/17 10:56 11/03/17 10:56 General appearance: no acute distress - Head Head exam: Present: atraumatic - Respiratory Respiratory exam: Present: decreased breath sounds. Absent: respiratory distress - Cardiovascular Cardiovascular exam: Present: RRR, +S1, +S2 - GI/Abdominal GI/Abdominal exam: Present: normal bowel sounds, soft, tenderness - Extremities Exam Additional comments: RLE 1+ edema, LLE 2-3+ edema - Neurological Exam Neurological exam: Present: alert Additional comments: oriented to name only, able to follow some simple commands - Skin Skin exam: Present: dry, pallor, warm Additional comments: stage IV sacral decub per report- not visualized on today's assessment Oncology - Results Labs: Consult Discharge Plan - Plan Referrals: Andrew Delarosa MD [Primary Care Provider] - <Felix Diop - Last Filed: 11/03/17 14:59> Date of Encounter: 11/03/17 - Data of Consult Requesting Physician: Chaya Beltran MD Primary Care Provider: Andrew Delarosa MD - Consult Narrative History of present illness: Ms. Canseco is a 71 year old female Oncology - Exam - Constitutional Vitals: Temp Pulse Resp BP Pulse Ox 97.6 F 75 16 108/64 97 11/03/17 10:56 11/03/17 10:56 11/03/17 10:56 11/03/17 10:56 11/03/17 10:56 Oncology - Results Labs: 3 11/03/17 11/03/17 11/03/17 10:27 05:13 05:13 WBC 6.9 RBC 2.81 L Hgb 7.9 L Hct 26.0 L MCV 92.5 MCH 28.1 MCHC 30.4 L RDW 18.8 H Plt Count 255 MPV 9.1 L Heparin Anti-Xa, Unfract 0.36 Sodium 132 L Potassium 4.1 Chloride 104 Carbon Dioxide 21 L BUN 15 Creatinine 0.34 L Est GFR ( Amer) > 60 Est GFR (Non-Af Amer) > 60 BUN/Creatinine Ratio 44 H Glucose 110 H Calculated Osmolality 275 L Calcium 9.6 Troponin I 3 11/03/17 11/03/17 11/02/17 05:13 01:53 22:15 WBC RBC Hgb Hct MCV MCH MCHC RDW Plt Count MPV Heparin Anti-Xa, Unfract 1.03 H* Sodium Potassium Chloride Carbon Dioxide BUN Creatinine Est GFR ( Amer) Est GFR (Non-Af Amer) BUN/Creatinine Ratio Glucose Calculated Osmolality Calcium Troponin I 0.69 H* 0.89 H* - Attending Attestation I have personally performed a face to face evaluation on this patient after reviewing her recent imaging. I have reviewed and agree with the care plan. Mrs. Canseco complains of pain, but cannot further describe location or severity. She is unable to answer any further questions due to her altered mental status. She is resting comfortably in bed. ECOG 4. Family meeting was had with the , son (one in person, one on phone) regarding goals of care. We discussed the progression on her imaging as well as decline in her performance status. Ultimately, they have elected to proceed with hospice care which is very appropriate. The palliative care team is working on making arrangements for discharge to hospice. Felix Diop MD Radiation Oncologist [facility] [address] [place] [address] This report was generated using [email or web address] dictation.
[2017-11-03] MEDS: MORPHINE SUL Oral CONC 10 MG/0.5 ML ORAL.SYG PO PRN (13:58)
--- NOTE | 2017-11-03 17:19 | Oncology Inp Consult Note ---
Date of Encounter: 11/03/17 Time of Encounter: 12:00 Assessment and Plan (1) Adenocarcinoma of lung, stage 4 Status: Chronic Assessment and plan: Patient with metastatic adenocarcinoma, with progression noted in imaging since prior scans, status post immunotherapy 2 cycles, TPS score 5%, she is not a candidate for chemotherapy to begin with. Discussed with ER physician yesterday to admit patient for palliative care option. Patient was also consulted by radiation oncology who agree with supportive measures only. She is on dexamethasone which is to be continued. Left lower extremity swelling, acute thrombosis, pulmonary embolism with pain continue anti-coagulation, heparin for symptomatically relief. She does not appear to be a candidate to continue immunotherapy due to progression of disease, and is not a chemotherapy candidate. She is a DNR comfort care. Palliative care team on board to arrange for hospice services. Qualifiers: Laterality: unspecified laterality Qualified Code(s): C34.90 - Malignant neoplasm of unspecified part of unspecified bronchus or lung - Data of Consult Requesting Physician: Chaya Beltran MD Primary Care Provider: Andrew Delarosa MD - Consult Narrative Reason for consult: 11/03/17 History of present illness: Chief complaint metastatic adenocarcinoma of the lung History of present illness --this is a 71-year-old female with a diagnosis of metastatic adenocarcinoma, stage IV, history of bone lesions difficulty ambulation CTA chest in August 2017 showed a right perihilar mass endobronchial ultrasound and biopsies showed adenocarcinoma. At PET CT scan had shown uptake in the lung, bony metastatic disease. MRI of the brain showed right parietal bone metastatic disease with no evidence of intracranial disease she had her mind asymptomatic previously. She underwent palliative radiation to the left pubic bone mass. She was also started on pembrolizumab completed cycle 2 on . She is hospitalized secondary to altered mental status. A CT scan of chest abdomen and pelvis as well as CT head were obtained that shows progression with multiple lytic skull lesions soft tissue mass in the right parietal area extending through the skull with mass effect on the dura. CT scan also showed bilateral pulmonary emboli right hilar mass increased size of hepatic lesions. Patient was consulted 11/02/2017, brain imaging findings reviewed with attending physician, she was started on anti-coagulation due to multiple bilateral pulmonary emboli. She was also started on Decadron due to left parietal lobe mass lesion with edema. Patient has been consulted by radiation oncology, due to prior encounter and possibility of radiotherapy. Patient appears confused and does not offer much history. She is not oriented, just saying she feels fine. Family not at bedside. Past Med Surg Social Fam HX - Past Medical History Medical history: cancer, GERD, hypertension Additional medical history: HERNIA Psychiatric history: anxiety, depression - Social History Smoking Status: Former smoker Smokeless Tobacco Status: No Alcohol use: none Drug use: none - Family History Mother History Unknown: Yes Medications and Allergies Acetaminophen [Non-Aspirin] 2 tab PO Q4H PRN 09/23/17 [History] Atorvastatin [Lipitor] 40 mg PO HS 09/23/17 [History] Buspirone HCl [Buspar] 10 mg PO BID 09/23/17 [History] Gabapentin [Neurontin] 300 mg PO BID 09/23/17 [History] HYDROcodone/Acet 10/325 mg [[place] 10-325 mg] 1 tab PO TID PRN 09/23/17 [History] Nitroglycerin [Nitrostat] 0.4 mg SL PRN PRN 09/23/17 [History] Omeprazole [PriLOSEC] 20 mg PO HS 09/23/17 [History] Aspirin Enteric Coated [Aspirin EC] 81 mg PO DAILY 09/29/17 [History] Enoxaparin [Lovenox] 70 mg SQ Q12HR #60 syr 10/21/17 [Rx] Collagenase Oint [Santyl] 1 appl TP DAILY 11/02/17 [History] Dronabinol [Marinol] 2.5 mg PO BIDLS 11/02/17 [History] 3 Allergy/AdvReac Type Severity Reaction Status Date / Time No Known Allergies Allergy Verified 10/21/17 08:17 ROS unobtainable: due to mental status Oncology - Exam - Constitutional Vitals: Temp Pulse Resp BP Pulse Ox 97.6 F 75 16 117/70 97 11/03/17 15:39 11/03/17 15:39 11/03/17 15:39 11/03/17 15:39 11/03/17 15:39 General appearance: average body habitus, mild distress Exam: On O2 NC - Head Head exam: Present: atraumatic, normal inspection - Eye Eye exam: Present: sclera anicteric - ENT ENT exam: Present: mucous membranes moist - Neck Neck exam: Present: full ROM - Respiratory Respiratory exam: Present: CTAB - Cardiovascular Cardiovascular exam: Present: +S1, +S2 - GI/Abdominal GI/Abdominal exam: Present: normal bowel sounds, soft - Extremities Exam Extremities exam: Present: pedal edema Additional comments: LLext tenderness - Neurological Exam Neurological exam: Present: altered Additional comments: not oriented, does not make meaningful communication Oncology - Results Labs: 3 11/03/17 11/03/17 11/03/17 16:43 10:27 05:13 WBC RBC Hgb Hct MCV MCH MCHC RDW Plt Count MPV Heparin Anti-Xa, Unfract 0.33 0.36 Sodium 132 L Potassium 4.1 Chloride 104 Carbon Dioxide 21 L BUN 15 Creatinine 0.34 L Est GFR ( Amer) > 60 Est GFR (Non-Af Amer) > 60 BUN/Creatinine Ratio 44 H Glucose 110 H Calculated Osmolality 275 L Calcium 9.6 Troponin I 3 11/03/17 11/03/17 11/03/17 05:13 05:13 01:53 WBC 6.9 RBC 2.81 L Hgb 7.9 L Hct 26.0 L MCV 92.5 MCH 28.1 MCHC 30.4 L RDW 18.8 H Plt Count 255 MPV 9.1 L Heparin Anti-Xa, Unfract 1.03 H* Sodium Potassium Chloride Carbon Dioxide BUN Creatinine Est GFR ( Amer) Est GFR (Non-Af Amer) BUN/Creatinine Ratio Glucose Calculated Osmolality Calcium Troponin I 0.69 H* 3 11/02/17 22:15 WBC RBC Hgb Hct MCV MCH MCHC RDW Plt Count MPV Heparin Anti-Xa, Unfract Sodium Potassium Chloride Carbon Dioxide BUN Creatinine Est GFR ( Amer) Est GFR (Non-Af Amer) BUN/Creatinine Ratio Glucose Calculated Osmolality Calcium Troponin I 0.89 H* CT CAP, Ct haed findings reviewed Consult Discharge Plan - Plan Referrals: Andrew Delarosa MD [Primary Care Provider] - Inpatient Charges Provider: Dr. Nathaly Fisher Consult Charges: [id number]
[2017-11-03] MEDS ORDERED: Aminoglycoside Consult 1 EACH MC ONE (17:27)
[2017-11-03] MEDS: Magic Mouthwash 10 ML UD Cup PO SCH (17:42)
[2017-11-03] MEDS: Sennosides/Docusate Sodium TABLET PO SCH (22:19)
[2017-11-04] MEDS: Heparin 25,000 UNIT/500 ML D5W 25,000 UNIT/500 ML BAG IVC SCH (03:14)
[2017-11-04] MEDS: MORPHINE SUL Oral CONC 10 MG/0.5 ML ORAL.SYG PO PRN (03:27)
[2017-11-04] MEDS: Dexamethasone 10 MG/ML VIAL IVP SCH (08:08)
[2017-11-04] MEDS: Aspirin Enteric Coated 81 MG Tablet PO SCH (08:29)
[2017-11-04] MEDS: Magic Mouthwash 10 ML UD Cup PO SCH ×2 (08:29→12:26)
[2017-11-04] MEDS: Sennosides/Docusate Sodium TABLET PO SCH (08:30)
[2017-11-04] MEDS ORDERED: MORPHINE SUL Oral CONC 10 MG/0.5 ML ORAL.SYG SL PRN (08:48)
[2017-11-04] MEDS ORDERED: MORPHINE SUL Oral CONC 10 MG/0.5 ML ORAL.SYG PO PRN (08:49)
--- NOTE | 2017-11-04 09:07 | Palliative Progress Note ---
Date of Encounter: 11/04/17 Time of Encounter: 08:50 - Assessment and plan (1) Cancer associated pain Current Visit: Yes Status: Chronic Assessment and plan: Patient is moaning and c/o pain "all over". Cannot describe or rate. Fentanyl patch began yesterday am. She is not taking po meds well now. Will D/C [place] - adjust Roxanol to 5mg for mod pain and add 10mg for severe pain. MOnitor and adjust as necessary. (2) Constipation Current Visit: Yes Status: Acute Assessment and plan: Continue bowel regimen - if no BM by tomorrow and she is not taking oral tabs - will schedule suppositories Qualifiers: Constipation type: unspecified constipation type Qualified Code(s): K59.00 - Constipation, unspecified (3) Goals of care, counseling/discussion Current Visit: Yes Status: Acute (4) Advance care planning Current Visit: Yes Status: Acute Assessment and plan: [facility] this am to eval for inpatient facility and meet with family. Will f/u after they arrive. (5) Pulmonary embolism Current Visit: Yes Status: Acute Qualifiers: Pulmonary embolism type: other Chronicity: acute Acute cor pulmonale presence: without acute cor pulmonale Qualified Code(s): I26.99 - Other pulmonary embolism without acute cor pulmonale (6) Metastatic disease Current Visit: Yes Status: Acute (7) Altered mental status Current Visit: Yes Status: Acute Qualifiers: Altered mental status type: unspecified Qualified Code(s): R41.82 - Altered mental status, unspecified (8) Sacral decubitus ulcer Current Visit: Yes Status: Chronic Qualifiers: Pressure injury stage: unspecified pressure injury stage Qualified Code(s) : L89.159 - Pressure ulcer of sacral region, unspecified stage - Time Spent With Patient Total time spent is greater than 50% in coordination of care (as documented) at patient's floor/unit and/or counseling patient: - Subjective Interval history: Patient awakens easily. Moans when touched and asking to go home. States she hurts and states "all over". Unable to describe or rate pain. No family present. - Constitutional Vitals: Abnormal lab results RBC 2.81 M/mcL (3.82-4.97) L 11/03/17 05:13 Hgb 7.9 g/dL (11.5-15.4) L 11/03/17 05:13 Hct 26.0 % (35.3-44.9) L 11/03/17 05:13 MCHC 30.4 g/dL (31.6-35.5) L 11/03/17 05:13 RDW 18.8 % (11.5-14.5) H 11/03/17 05:13 MPV 9.1 fL (9.4-12.4) L 11/03/17 05:13 Neutrophils # 9.2 K/mcL (1.6-8.9) H 11/02/17 13:54 PT 13.3 Seconds (9.4-12.1) H 11/02/17 13:54 APTT 22.6 Seconds (26.0-36.0) L 11/02/17 13:54 VBG pCO2 39 mmHg (41-51) L 11/02/17 14:06 VBG pO2 87 mmHg (25-50) H 11/02/17 14:06 Sodium 132 mEq/L (136-145) L 11/03/17 05:13 Carbon Dioxide 21 mEq/L (23-29) L 11/03/17 05:13 Creatinine 0.34 mg/dL (0.60-1.20) L 11/03/17 05:13 BUN/Creatinine Ratio 44 (6-26) H 11/03/17 05:13 Glucose 110 mg/dL (70-105) H 11/03/17 05:13 Calculated Osmolality 275 (280-300) L 11/03/17 05:13 Direct Bilirubin 0.4 mg/dL (0.0-0.2) H 11/02/17 13:54 Alkaline Phosphatase 220 Units/L (34-104) H 11/02/17 13:54 Troponin I 0.69 ng/mL (< 0.04) H* 11/03/17 05:13 Serum Total Protein 5.6 g/dL (6.4-8.9) L 11/02/17 13:54 Albumin 2.3 g/dL (3.5-5.7) L 11/02/17 13:54 Albumin/Globulin Ratio 0.7 (1.1-2.2) L 11/02/17 13:54 Ur Specific [place] > 1.030 (1.010-1.025) H 11/02/17 15:09 Urine Bilirubin Small (Negative) H 11/02/17 15:09 Urine Urobilinogen 2.0 mg/dL (Normal) H 11/02/17 15:09 Ur Leukocyte Esterase Small (Negative) H 11/02/17 15:09 Urine Microscopic WBC 3-5 per hpf (0-3) H 11/02/17 15:09 Ur Squamous Epith Cells Many per lpf (None-Few) H 11/02/17 15:09 Ur Culture Indicated? NO. (NO) A 11/02/17 15:09 General appearance: Present: mild distress - Respiratory Respiratory exam: Present: decreased breath sounds, CTAB - Cardiovascular Cardiovascular exam: Present: +S1, +S2 - GI/Abdominal GI/Abdominal exam: Present: normal bowel sounds, soft - Extremities Exam Additional comments: 3+ edema LLE, 1+ edema RLE - Neurological Exam Neurological exam: Present: alert Additional comments: Awakens easily - Oriented to name only. Follows only very simple commands. - Skin Skin exam: Present: dry, pallor, warm Palliative Quality Palliative Quality: Screen for Code Status: Yes, Screen for Goals of Care: Yes, Screen for Pain: Yes, If Pain Regimen Started, Initiate Bowel Regimen: Yes, Screen for Nausea/Vomitting: Yes Code Status: 11/02/17 21:43 Resuscitation Status: Active [RES] Routine Comment: Family agreed to full code for now Resuscitation Status: Full Code 11/03/17 12:56 DNR [Resuscitation Status: Active] [RES] Routine Comment: Resuscitation Status: DNR-Comfort Care - Labs CBC & Chem 7: 11/03/17 05:13 11/03/17 05:13 Labs: Laboratory Results - last 24 hr 11/03/17 11/03/17 10:27 16:43 Heparin Anti-Xa, Unfract 0.36 0.33 - ABG Interpretation ABG results: PT/INR, D-dimer PT 13.3 Seconds (9.4-12.1) H 11/02/17 13:54 Consult Discharge Plan - Plan Referrals: Andrew Delarosa MD [Primary Care Provider] -
[2017-11-04 11:04] VITALS: BP 112/70
--- NOTE | 2017-11-04 13:56 | Discharge Summary ---
- NOTES TO OUTPATIENT PROVIDER Notes to Outpatient Provider: none Orders not resulted at time of discharge: Pending orders 11/04/17 16:30 Heparin anti-factor XA UFH [COAG] Timed Date of Encounter: 11/04/17 Time of Encounter: 11:00 - Discharge Diagnosis (1) Adenocarcinoma of lung, stage 4 Priority: Primary Status: Chronic Qualifiers: Laterality: unspecified laterality Qualified Code(s): C34.90 - Malignant neoplasm of unspecified part of unspecified bronchus or lung (2) Pulmonary embolism Priority: Secondary Status: Acute Qualifiers: Pulmonary embolism type: other Chronicity: acute Acute cor pulmonale presence: without acute cor pulmonale Qualified Code(s): I26.99 - Other pulmonary embolism without acute cor pulmonale (3) Elevated troponin Priority: Secondary Status: Acute (4) Acute encephalopathy Priority: Secondary Status: Acute (5) Sacral decubitus ulcer Priority: Secondary Status: Chronic Qualifiers: Pressure injury stage: unspecified pressure injury stage Qualified Code(s) : L89.159 - Pressure ulcer of sacral region, unspecified stage (6) Cancer associated pain Priority: Secondary Status: Chronic (7) Advance care planning Priority: Secondary Status: Acute (8) Essential hypertension Priority: Secondary Status: Chronic Hospital course: Patient is a 71-year-old female with past medical history significant for hypertension, GERD with long/pelvic cancer stage IV who presented to the ER due to altered mental status from the [place] [facility]. In the ER she was found to have elevated troponin of 0.68, and anemia with hemoglobin of 8.8. UA was positive for small leukocyte esterase. Chest CTA showed bilateral pulmonary embolic disease, no evidence of right heart strain. Imaging also revealed extensive metastasis in the hilar region, liver bilateral adrenal glands and pelvis a head CT showed possible metastasis with multiple lytic lesions with slight mass effect upon the dura. There was also questionable focus of edema in the posterior left parietal lobe in the subcortical white matter. She was admitted to medical surgical floor for further management. Hospital stay patient was determined to have multiple lytic skull lesions as meds of metastatic disease and decision was made to consult palliative care. Family agreed with patient for hospice care and patient will be transferred [facility]CF with hospice. - Time Spent with Patient Total time spent providing and/or coordinating discharge services: Less than 30 minutes - Discharge Medications Prescriptions: Gabapentin [Neurontin] 300 mg PO BID 5 Days #10 capsule MORPHINE SUL Oral CONC [Roxanol Oral Conc] 5 mg PO Q2H PRN 3 Days #36 oral.syg PRN Reason: Moderate Pain MORPHINE SUL Oral CONC [Roxanol Oral Conc] 10 mg SL Q2H PRN 3 Days #36 oral.syg PRN Reason: Severe Pain Home Medications: Acetaminophen [Non-Aspirin] 2 tab PO Q4H PRN 09/23/17 [History] Atorvastatin [Lipitor] 40 mg PO HS 09/23/17 [History] Buspirone HCl [Buspar] 10 mg PO BID 09/23/17 [History] Nitroglycerin [Nitrostat] 0.4 mg SL PRN PRN 09/23/17 [History] Omeprazole [PriLOSEC] 20 mg PO HS 09/23/17 [History] Aspirin Enteric Coated [Aspirin EC] 81 mg PO DAILY 09/29/17 [History] Enoxaparin [Lovenox] 70 mg SQ Q12HR #60 syr 10/21/17 [Rx] Collagenase Oint [Santyl] 1 appl TP DAILY 11/02/17 [History] Dronabinol [Marinol] 2.5 mg PO BIDLS 11/02/17 [History] Bisacodyl [Dulcolax] 10 mg RC DAILY PRN supp.rect 11/04/17 [Rx] Dexamethasone [Decadron] 10 mg IVP BID vial 11/04/17 [Rx] Gabapentin [Neurontin] 300 mg PO BID 5 Days #10 capsule 11/04/17 [Rx] MORPHINE SUL Oral CONC [Roxanol Oral Conc] 5 mg PO Q2H PRN 3 Days #36 oral.syg 11/04/17 [Rx] MORPHINE SUL Oral CONC [Roxanol Oral Conc] 10 mg SL Q2H PRN 3 Days #36 oral.syg 11/04/17 [Rx] Sennosides/Docusate Sodium [Senna Plus] 1 each PO BID tablet 11/04/17 [Rx] Allergies/Adverse Reactions: 3 Allergy/AdvReac Type Severity Reaction Status Date / Time No Known Allergies Allergy Verified 10/21/17 08:17 Date of admission: 11/02/17 19:26 Primary care physician: Andrew Delarosa MD Consults: 11/02/17 21:49 Consult to Oncology [CONS] Routine Consulting Provider: [facility] Reason for Consult: Metastatic lesions to liver, adrenal glands, pelvis and dural lytic lesions. Called completed from the ER at time of admission Call Completed: Yes 11/03/17 08:02 Consult to Palliative Care [CONS] Routine Comment: Consulting Provider: [facility] Reason for Consult: stage 4 adenocarcinoma lung, poor functional status, deconditioning Call Completed: No - Constitutional Vitals: Temp Pulse Resp BP Pulse Ox 98.0 F 86 18 112/70 95 11/04/17 11:02 11/04/17 11:02 11/04/17 11:02 11/04/17 11:02 11/04/17 11:02 General appearance: Present: A&O X 1, pleasant, no acute distress, answers questions appropriately Exam: nad - Cardiovascular Cardiovascular exam: Present: RRR, +S1, +S2. Absent: diastolic murmur, gallop, rubs, systolic murmur - Patient Status Disposition: Hospice - Medical Facility Condition: Critical - Discharge Instructions Instructions: Deep Venous Thrombosis (DC) Follow Up With: Andrew Delarosa MD [Primary Care Provider] -
--- NOTE | 2017-11-04 13:57 | Physician Discharge Referral ---
ExtendedCare Referral Info Institutional Level of Care: Intermediate (Hospice) - Diagnosis (1) Adenocarcinoma of lung, stage 4 Status: Chronic (2) DVT (deep venous thrombosis) Status: Chronic (3) Pulmonary embolism Status: Acute (4) Elevated troponin Status: Acute (5) Acute encephalopathy Status: Acute (6) Sacral decubitus ulcer Status: Chronic (7) Cancer associated pain Status: Chronic (8) Advance care planning Status: Acute (9) Essential hypertension Status: Chronic - Transfer Medications Prescriptions: Gabapentin [Neurontin] 300 mg PO BID 5 Days #10 capsule MORPHINE SUL Oral CONC [Roxanol Oral Conc] 5 mg PO Q2H PRN 3 Days #36 oral.syg PRN Reason: Moderate Pain MORPHINE SUL Oral CONC [Roxanol Oral Conc] 10 mg SL Q2H PRN 3 Days #36 oral.syg PRN Reason: Severe Pain Home Medications: Acetaminophen [Non-Aspirin] 2 tab PO Q4H PRN 09/23/17 [History] Atorvastatin [Lipitor] 40 mg PO HS 09/23/17 [History] Buspirone HCl [Buspar] 10 mg PO BID 09/23/17 [History] Nitroglycerin [Nitrostat] 0.4 mg SL PRN PRN 09/23/17 [History] Omeprazole [PriLOSEC] 20 mg PO HS 09/23/17 [History] Aspirin Enteric Coated [Aspirin EC] 81 mg PO DAILY 09/29/17 [History] Enoxaparin [Lovenox] 70 mg SQ Q12HR #60 syr 10/21/17 [Rx] Collagenase Oint [Santyl] 1 appl TP DAILY 11/02/17 [History] Dronabinol [Marinol] 2.5 mg PO BIDLS 11/02/17 [History] Bisacodyl [Dulcolax] 10 mg RC DAILY PRN supp.rect 11/04/17 [Rx] Dexamethasone [Decadron] 10 mg IVP BID vial 11/04/17 [Rx] Gabapentin [Neurontin] 300 mg PO BID 5 Days #10 capsule 11/04/17 [Rx] MORPHINE SUL Oral CONC [Roxanol Oral Conc] 5 mg PO Q2H PRN 3 Days #36 oral.syg 11/04/17 [Rx] MORPHINE SUL Oral CONC [Roxanol Oral Conc] 10 mg SL Q2H PRN 3 Days #36 oral.syg 11/04/17 [Rx] Sennosides/Docusate Sodium [Senna Plus] 1 each PO BID tablet 11/04/17 [Rx] Allergies/Adverse Reactions: 3 Allergy/AdvReac Type Severity Reaction Status Date / Time No Known Allergies Allergy Verified 10/21/17 08:17 - Respiratory Orders Smoking Cessation: Smoking cessation has been advised. For more information, call the [place] Tobacco Quit Line at 4-653-HWJI-NOW. CERTIFICATION: I certify that the transfer of the above named patient to an Extended Care Facility is necessary for the continuing treatment of the diagnosis listed. The above information is true and accurate reflection of patient's current condition. Confidential - Redisclosure prohibited without a patient's written consent.
--- NOTE | 2017-11-05 07:44 | Electrocardiograph Report ---
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
== END 2017-11-04 17:28 | disposition hospice, inpatient (51) ==
LOC: EMEROOARM 13:23 → 2ANU 13:23 → SUATTDRO 19:26 → 2ANU 20:30 → UNDODISOB 20:45
PROVIDERS: ADMIT Internal Medicine; ATTEND Hospitalist